=== PATIENT | female | born 1970 | race Caucasian/White ===

== ENCOUNTER 2019-06-29 09:40 | Emergency (ER) | payer SELFPAY ==
[2019-06-29 09:44] VITALS: BP 147/86; PULSE 115; RESP 21; TEMP 36.8; O2SAT 97; BMI 24.3
[2019-06-29 09:50] VITALS: PULSE 110; RESP 20; TEMP 36.6; O2SAT 99
--- NOTE | 2019-06-29 09:55 | RAD_ITS ---
STUDY: X-RAY CHEST REASON FOR EXAM: Female, 49 years old. CHEST PRESSURE, FEVER, COUGH TECHNIQUE: PA and lateral views of the chest. COMPARISON: None. FINDINGS: The lungs are clear and expanded. There is no demonstrated pleural abnormality. Normal size heart. Normal mediastinum and prieto. Normal visualized pulmonary arteries. Normal visualized aortic arch and descending thoracic aorta. Normal visualized thoracic spine. Normal visualized ribs, clavicles, and shoulders. There is no demonstrated abnormality of the visualized soft tissue structures of the upper abdomen. RAD/Chest PA and Lateral IMPRESSION: Normal x-ray examination of the chest. Electronically Signed: Edwin Calvert DO at 10:49 EST Tel , Service support ,
--- NOTE | 2019-06-29 10:00 | ED.DCSUM_ITS ---
History of Present Illness Informant: Patient, Family Onset: Weeks - 1 week Context: Gradual Onset Timing: Continuous Quality: Short of breath Location: Chest Current Severity: Severe Maximum Severity: Severe Worsened by: - - Coughing and exertion Relieved by: - - Nothing Associated Symptoms: Nasal Congestion, Myalgias, Diarrhea, Shortness of Breath, Productive Cough. Negative for: Headache, Sinus Pressure, Nausea, Vomiting, Chest Pain, Nonproductive cough, Hemoptysis Narrative: 49-year-old female daily cigarette smoker history of COPD presents with about a week of dyspnea on exertion with wheezing productive cough with sputum myalgias subjective fevers and chills. Granddaughter has influenza. Patient's nebulizer is currently broken and she has not been able to use any breathing treatments. She has no vomiting she has no chest pain or hemoptysis no leg pain or swelling no history of PE or DVT no recent travel or surgery. Prior similar symptoms: No Recent Illness/Hospitalization: No <Pedro Tee - Last Filed: 06/29/19 11:15> <Liam Reyes - Last Filed: 06/29/19 11:24> Chief Complaint: General Illness Past Medical History Prior records reviewed: Yes Past Medical History: - - COPD Surgical History: no surgical history Smoking Status: Current every day smoker Alcohol: Occasional Drugs: None <Pedro Tee - Last Filed: 06/29/19 11:15> <Liam Reyes - Last Filed: 06/29/19 11:24> - Allergies and Home Meds Allergies/Adverse Reactions: Allergies tramadol [From Ultram] Allergy (Verified 06/29/19 09:43) Anaphylaxis Primary Care Physician: Max Gutierres MD [STAFF PHYSICIAN] - Oziel Calero MD [STAFF PHYSICIAN] - 3-5 Days Review of Systems All systems negative except as indicated General: Reports: Chills, Fever, Malaise, Subjective Eyes: Denies: Visual changes - bilaterally, Blurred Vision - bilaterally, Diplopia ENT: Reports: Rhinorrhea, Sore throat Cardiovascular: Denies: Chest pain, Palpitations, Heart racing Respiratory: Reports: Dyspnea, Cough, Sputum, Dyspnea on exertion. Denies: Orthopnea, Paroxysmal nocturnal dyspnea Gastrointestinal: Reports: Diarrhea. Denies: Abdominal pain, Nausea, Vomiting, Constipation, Melena, Hematochezia Genitourinary: Denies: Dysuria, Hematuria, Frequency Musculoskeletal: Reports: Myalgias. Denies: Arthralgias, Neck pain, Back pain, Swelling, Extremity Pain Skin: Denies: Rash, Abscess, Abrasions, Wounds Neurological: Denies: Headache, Weakness, Parasthesia, Numbness Hematologic: Denies: Easy bruising, Easy bleeding, Lymphadenopathy <Pedro Tee - Last Filed: 06/29/19 11:15> Physical Exam Vital Signs/Narrative: Vital Signs Temp Pulse Resp BP Pulse Ox 06/29/19 09:50 98 F 110 H 20 H 99 06/29/19 09:44 98.2 F 115 H 21 H 147/86 H 97 Inital Vital Signs reviewed: Yes General: Well nourished, Well developed Head: Normocephalic, Atraumatic Eyes: Perrl, EOMI Ears: Normal external canal, TM's clear Nose: Congestion Mouth/Throat: Airway Patent, Posterior Oropharyngeal Erythema Neck: Supple, Nontender, No Lymphadenopathy, No Meningismus Cardiovascular: Regular rate, Regular rhythm, No murmurs Respiratory: No distress, Chest nontender, Wheezing, Decreased Air Movement Abdomen: Soft, Nontender, Nondistended, Normal bowel sounds, No masses Back: Nontender, Normal Inspection Extremities: Nontender, No edema Skin: Normal color, No rash Neurological: Alert, Oriented x3 Psychological: Normal affect, Normal Mood <Pedro Tee - Last Filed: 06/29/19 11:15> Vital Signs/Narrative: Vital Signs Temp Pulse Resp BP Pulse Ox 06/29/19 10:09 105 H 20 H 06/29/19 09:50 98 F 110 H 20 H 99 06/29/19 09:44 98.2 F 115 H 21 H 147/86 H 97 <ReyesLiam - Last Filed: 06/29/19 11:24> Diagnostic/Tx/Re-eval - Medical Decision Making Patient was given a dose of prednisone as well as a series of aerosols. 2 view chest x-ray showed no acute abnormality. There is no infiltrate noted. Repeat exam the patient feels improved. She is not short of breath she is speaking in full sentences and at this time we do feel that she is safe for discharge. We discussed smoking cessation. She will be placed on prednisone. I will give her a prescription for an albuterol MDI with spacer. I will prescribe Tessalon Perles. Patient was advised to follow-up in the next 2 to 3 days with her family doctor for repeat evaluation or return back here to the emergency department for worsening symptoms which were discussed. She was agreeable with plan all questions were answered <Pedro Tee - Last Filed: 06/29/19 11:15> Chest X-Ray - ED: 2 View, Read by ED Physician, Normal, Heart, Lungs, Mediastinum, Bony Structures, No Acute Disease, Chronic Changes, - - Is discoid atelectasis noted left lower lobe. This is a new finding from previous x-ray that was obtained several months ago. X-ray is otherwise unchanged. 06/29/19 09:55 Chest PA and Lateral [RAD] Stat - Rhythm Strip Rhythm Strip: Sinus Rhythm Rate: 74 Ectopy: None - Medical Decision Making I performed my own independent history and physical patient. Patient presents with increased shortness of breath. She does have history of smoking since age 16. She presently smokes 1 pack/day. She denies fever, chills night sweats. She states occasionally the cough is productive of sputum. She is uncertain of the color. Patient denies history of VTE. She denies leg pain, swelling discoloration. She denies orthopnea or PND. She denies history of coronary disease. She has not been on prednisone the last 3 to 6 months. She does not have a metered-dose inhaler. Vital signs noted. She is tachycardic. HEENT exam is unremarkable. There is no retraction or use of accessory muscles. There is decreased air movement. There is significant wheezing noted throughout on expiration. There is no egophony mucus vocal fremitus. Heart is regular without murmur, gallop or rub. There is no asymmetry, swelling, discoloration, leg vein distention, palpable cords or tenderness along the distribution of the deep venous system. Patient was treated with DuoNeb, albuterol and prednisone. Chest x-ray was obtained to evaluate for pneumothorax and rule out pneumonia as well. Chest x- ray interpreted by me reveals hyper aeration with chronic changes. Cardiac silhouette and size normal. Mediastinum is unremarkable. Osseous structures are unremarkable. X-ray was interpreted by me at 1055. Plan is discharge with inhaler and burst of prednisone. <Liam Reyes - Last Filed: 06/29/19 11:24> ED Disposition <Pedro Tee - Last Filed: 06/29/19 11:15> <Liam Reyes - Last Filed: 06/29/19 11:24> - Plan for ED Patient: Disposition: Home or Assisted Living Diagnosis: COPD with exacerbation Instructions: Acute Bronchitis Prescriptions: Prednisone [Deltasone] 40 mg PO DAILY #10 tab Prescription Printed Benzonatate [Tessalon Perle] 200 mg PO TID PRN PRN #20 cap PRN Reason: Cough Prescription Printed Albuterol Inhaler [Ventolin Hfa] 2 puff INHALATION Q4H PRN PRN #1 inhaler PRN Reason: Wheezing Prescription Printed Referrals: Oziel Calero MD [STAFF PHYSICIAN] - 3-5 Days Max Gutierres MD [STAFF PHYSICIAN] -
[2019-06-29] MEDS: Ipratropium/Albuterol Sulfate 3 ML AMPUL.NEB INHALATION (10:08)
[2019-06-29 10:09] VITALS: PULSE 105; RESP 20
[2019-06-29] MEDS: predniSONE 20 MG Tablet 60 MG PO (10:21)
[2019-06-29] MEDS: Albuterol 2.5 MG/3 ML VIAL.NEB. INHALATION ×3 (10:36→10:42)
[2019-06-29 10:37] VITALS: PULSE 100; RESP 23
[2019-06-29 10:43] VITALS: PULSE 100; RESP 20
[2019-06-29 10:44] VITALS: O2SAT 97
== END 2019-06-29 11:42 | disposition home or self-care (01) ==
PROVIDERS: Emergency Provider Physician Assistant Medical; PCP Family Medicine
DX: J44.1 Chronic obstructive pulmonary disease with (acute) exacerbation (principal); F17.200 Nicotine dependence, unspecified, uncomplicated
CPT/HCPCS: 71046; 87804; 94640; 99251; 99281; 99282; G0463